=== PATIENT | male | born 1960 | race Caucasian/White ===

== ENCOUNTER → 2024-07-24 13:33 | Outpatient (REF) | payer SELFPAY | LOC: HWRAD 13:33 | PROVIDERS: ATTENDING PHYSICIAN Family Medicine | DX: Z13.6 Encounter for screening for cardiovascular disorders (principal); Z82.49 Family history of ischemic heart disease and other diseases of the circulatory system | CPT/HCPCS: 75571 ==

== ENCOUNTER → 2024-07-24 13:39 | Outpatient (REF) | payer BC, SELFPAY | LOC: HWRAD 13:39 | PROVIDERS: ATTENDING PHYSICIAN Family Medicine | DX: Z13.6 Encounter for screening for cardiovascular disorders (principal); Z82.49 Family history of ischemic heart disease and other diseases of the circulatory system | CPT/HCPCS: 76770 ==

== ENCOUNTER 2024-12-26 05:05 | Emergency (ER) | payer BC, SELFPAY ==
[2024-12-26 05:06] VITALS: BP 174/90
[2024-12-26 05:19] VITALS: BMI 29.9
[2024-12-26 05:28] VITALS: BP 157/90
[2024-12-26 05:49] LABS: Hematocrit 41.9 % (39.0-52.0); Hemoglobin 14.4 g/dL (13.0-18.0); Mean Corp Hgb Conc. 34.4 g/dL (33.0-37.0); Mean Corpuscular Volume 89.1 fL (80.0-94.0); Nucleated Red Blood Cells % 0 % (-); Platelet Count 242 10^3/uL (130-400); Red Cell Dist. Width 12.6 % (11.5-14.5)
[2024-12-26 06:00] VITALS: BP 153/88
--- NOTE | 2024-12-26 06:04 | ED.GENMED ---
History of Present Illness
<Marck Shepherd MD, Resident - Last Filed: 12/26/24 08:26>
General
Chief Complaint: Flank Pain
Source: patient
Exam Limitations: none
Time Seen by Provider: 12/26/24 05:32
Nursing documentation reviewed up to this point in time: agreed with
Travel History
Have you traveled to any high risk areas for coronavirus over the past 14 days?: No
History of Present Illness
History of Present Illness:
Mr. Perry is a 64-year-old male presenting in the emergency department with complaints of right-sided flank pain that started yesterday morning around 9 AM. He states initially the pain was mild however it increased in intensity with time which
prompted him to come to the emergency department. Denies any aggravating and relieving factors. States that the pain is around 7�8/10. Denies any radiating pain. Unsure correlation with ambulation. Denies any associated urinary symptoms. Never
had similar pain in the past. Denies history of any kidney or bladder problems.
If applicable-neuro sx onset
Onset of symptoms known: Yes
Date of onset of symptoms: 12/25/24
Past History
<Marck Shepherd MD, Resident - Last Filed: 12/26/24 08:26>
Past History
ED Past Medical History: GERD and HTN
ED Past Surgical History: Negative Cardiac
Social History
Tobacco: Non-smoker
Alcohol: Occasional
Drug: None
Personal:
Living: with family
Employment: Employed
Family History
Family History: Negative Early CAD
Review of Systems
<Marck Shepherd MD, Resident - Last Filed: 12/26/24 08:26>
Review of Systems
Allergies reviewed?: Yes
Constitutional: Reports no symptoms
EENT: Reports no symptoms
Respiratory: Reports no symptoms
Cardiac: Reports no symptoms
ABD/GI: Reports no symptoms
: Reports flank pain (Right-sided)
Musculoskeletal: Reports no symptoms
Skin: Reports no symptoms
Neurological: Reports no symptoms
Endocrine: Reports no symptoms
Hematologic/Lymphatic: Reports no symptoms
Psychiatric: Reports no symptoms
Phy Exam
<Marck Shepherd MD, Resident - Last Filed: 12/26/24 08:26>
General Physical Exam
General Presentation: well appearing and no apparent distress
General age: appears stated age
General Skin: warm
General Habitus: normal
General Mental: alert
General Hydration: appears well hydrated
Gastrointestinal Exam
Gastrointestinal Exam: non tender, soft and non distended
Genitourinary Exam Male
Exam Male: no testicular swelling and other (+ Right sided CVAT)
Course
<Marck Shepherd MD, Resident - Last Filed: 12/26/24 08:26>
Orders/Labs/Results
Orders:
Orders
12/26/24 05:41
Complete Blood Count/With Diff Urgent
Comprehensive Metabolic Panel Urgent
Urinalysis Reflex To Culture Urgent
Date Specimen was Collected: 12/26/24
Time Specimen was Collected: 05:34
12/26/24 06:33
Ketorolac [Toradol] 30 mg IV NOW STA
12/26/24 06:34
CT Abd/pel Without Iv Or Oral Urgent
Comment:
Reason For Exam: R Flank pain
12/26/24 08:11
Electrocardiogram (*1) Urgent
Reason for Study: Abdominal Pain
EKG- Treatment ONCE
Abnormal Lab Results
12/26/24
05:41
Chloride 108 H mmol/L
(98-107)
Glucose 133 H mg/dl
(70-99)
12/26/24 05:41
12/26/24 05:41
Vital Signs
Initial and Last Documented VS:
Initial Vital Signs
Temp Pulse Resp BP Pulse Ox
97.8 F 84 18 174/90 98
12/26/24 05:06 12/26/24 05:06 12/26/24 05:06 12/26/24 05:06 12/26/24 05:06
Last Documented Vital Signs
Temp Pulse Resp BP Pulse Ox
97.9 F 82 16 158/92 94
12/26/24 07:00 12/26/24 07:00 12/26/24 07:00 12/26/24 07:00 12/26/24 07:30
<August Farias, DO - Last Filed: 12/26/24 08:34>
Orders/Labs/Results
Orders:
Orders
12/26/24 05:41
Complete Blood Count/With Diff Urgent
Comprehensive Metabolic Panel Urgent
Urinalysis Reflex To Culture Urgent
Date Specimen was Collected: 12/26/24
Time Specimen was Collected: 05:34
12/26/24 06:33
Ketorolac [Toradol] 30 mg IV NOW STA
12/26/24 06:34
CT Abd/pel Without Iv Or Oral Urgent
Comment:
Reason For Exam: R Flank pain
12/26/24 08:11
Electrocardiogram (*1) Urgent
Reason for Study: Abdominal Pain
EKG- Treatment ONCE
Abnormal Lab Results
12/26/24
05:41
Chloride 108 H mmol/L
(98-107)
Glucose 133 H mg/dl
(70-99)
12/26/24 05:41
12/26/24 05:41
Vital Signs
Initial and Last Documented VS:
Initial Vital Signs
Temp Pulse Resp BP Pulse Ox
97.8 F 84 18 174/90 98
12/26/24 05:06 12/26/24 05:06 12/26/24 05:06 12/26/24 05:06 12/26/24 05:06
Last Documented Vital Signs
Temp Pulse Resp BP Pulse Ox
97.9 F 82 16 158/92 94
12/26/24 07:00 12/26/24 07:00 12/26/24 07:00 12/26/24 07:00 12/26/24 07:30
<Marck Shepherd MD, Resident - Last Filed: 12/26/24 08:26>
MDM/Problems Addressed
Differential Diagnosis Includes:
Renal stone vs muscular vs UTI vs less likely appendicitis vs less likely colic
MDM/Problems Addressed:
CBC, CMP is unremarkab;le. UA clean, neg for hematuria. He continues to have bothersome pain. will get CT abd/pel w/o contrast. Iv toradol for pain.
Pain decreased to 4/[address] with No evidence of intestinal obstruction, bowel inflammatory process, nephrolithiasis, hydronephrosis, cholecystitis, or abscess formation. There is suspicion of left basilar pneumonia however the physical
exam showed clear lungs and patient denies any trouble breathing or systemic symptoms. Most likely pain is muscular, discussed the use of NSAIDs and topicals including diclofenac gel and lidocaine patches. EKG with normal sinus rhythm. Patient is
aware that if he developed any respiratory symptoms he should come back. Patient agreed with the plan. Patient is stable for discharge.
Advised to follow-up with PCP outpatient
<Marck Shepherd MD, Resident - Last Filed: 12/26/24 08:26>
*Pulse Oximetry
SaO2: 98
Oxygen Mode of Delivery: Room air
Patient hypoxic: no
*Critical Care Note
Total Time (30-74mins, 75-104mins- exclusive of procedures): Not Applicable
ED Attending Note
<Marck Shepherd MD, Resident - Last Filed: 12/26/24 08:26>
-
Portions of this chart may have been created with voice recognition software.� Occasional wrong word or��sound alike� substitutions may have occurred due to the inherent limitations of voice recognition software.
<August Farias DO - Last Filed: 12/26/24 08:34>
ED Attending Note
Patient seen and examined by attending physician: Yes
I performed a history and physical exam of patient and discussed management with resident, I reviewed resident's note and agree with documented findings and plan of care.: Yes
ED Attending Note:
Seen with resident examined independently 64-year-old male limited past medical history acute onset of flank pain with nausea while at work no history of kidney stones no dysuria or frequency no hematuria, no heavy lifting
Differential appears to be or renal colic, appendicitis, muscle strain doubt AAA will try Toradol, CT scan serial exams
830, CT noted labs noted, do not believe he has pneumonia, also order an EKG which looks nonischemic
Discharge Plan
Departure
Patient Disposition: Home (Routine Discharge)
Date of Disposition: 12/26/24
Time of Disposition: 08:22
Patient with high blood pressure during this ER visit?: Yes
Condition: Good
Discharge Problem:
Acute right flank pain
Instructions: Flank Pain (DC), BLOOD PRESSURE
Prescriptions:
New
ibuprofen 600 mg tablet
600 mg PO Q8H PRN (Reason: Pain) Qty: 15 0RF
No Action
pantoprazole 40 MG tablet,delayed release (DR/EC)
40 mg PO DAILY Qty: 30 0RF
Referrals:
Brendan Valdez DO [Family Provider, Family Practice] - Follow up in 1 week
Activity Restrictions/Additional Instructions:
You were seen in the ER for right-sided flank pain. Blood work and urinalysis were unremarkable. CT with no evidence of intestinal obstruction, bowel inflammatory process, nephrolithiasis, hydronephrosis, cholecystitis, or abscess formation. EKG
with normal sinus rhythm. Likely cause of your right-sided flank pain is muscular in nature. Ibuprofen prescription was sent to your pharmacy please utilize it as needed maximum 1 tablet 3 times a day. You can also trial topicals including
diclofenac gel and lidocaine patches. Follow-up with your PCP in 1 week. If you develop any respiratory symptoms or worsening of flank pain you should come back in the ER for reevaluation.
Interventions
Interventions:
*Risk Screen - Suicide Last Done: 12/26/24 05:06
*General Assessment Last Done: 12/26/24 05:20
*Neglect/Abuse Screening Last Done: 12/26/24 05:06
*ED- Fall Risk Assessment Last Done: 12/26/24 05:20
*ED COVID-19 Vaccine History Last Done: 12/26/24 05:20
UO-Nsjyfr-Lrwemeswul Assessment Last Done: 12/26/24 05:21
ED-Male Genitourinary Assessment Last Done: 12/26/24 05:21
Discharge Date and Time
Print Language: YI
[2024-12-26 06:13] LABS: Urine Character Clear (Clear)
[2024-12-26 06:18] LABS: ALT (SGPT) 30 U/L (0-50); AST (SGOT) 25 U/L (17-59); Albumin 4.4 g/dl (3.5-5.0); Alkaline Phosphatase 52 U/L (38-126); Blood Urea Nitrogen 16 mg/dl (9-20); Calcium 9.5 mg/dl (8.4-10.2); Carbon Dioxide 23 mmol/L (22-30); Chloride 108 mmol/L (98-107); Estimated Creatinine Clearance 112 ml/min; Glucose 133 mg/dl (70-99); Potassium 3.8 mmol/L (3.5-5.1); Sodium 140 mmol/L (135-145); Total Protein 7.1 g/dl (6.3-8.2); eGFR > 60.00
[2024-12-26] MEDS: TORADOL 30 MG IV (06:40)
[2024-12-26 07:00] VITALS: BP 158/92
== END 2024-12-26 08:52 | disposition home or self-care (01) ==
LOC: EMR 05:05
PROVIDERS: Emergency Medicine; EMERGENCY PHYSICIAN Emergency Medicine; FAMILY PHYSICIAN Family Medicine
DX: R10.9 Unspecified abdominal pain (principal); R11.0 Nausea; I10 Essential (primary) hypertension; K21.9 Gastro-esophageal reflux disease without esophagitis
CPT/HCPCS: 99284; 96374; 74176; 80053; 81003; 85025; 93005